=== PATIENT | male | born 1950 | race Caucasian/White ===

== ENCOUNTER 2018-11-23 18:45 | Emergency (ER) | payer BC, OTHER ==
[~2018-11-23] VITALS: Ht 180.3 cm; Wt 106.2 kg
[2018-11-23] MEDS ORDERED: NAPROSYN500 MG PO (20:05)
[2018-11-23 20:50] VITALS: BP 158/92
== END 2018-11-23 20:50 | disposition home or self-care (01) ==
LOC: ER 18:45
DX: S83.92XA Sprain of unspecified site of left knee, initial encounter (principal); W00.0XXA Fall on same level due to ice and snow, initial encounter; Y93.89 Activity, other specified; Y92.89 Other specified places as the place of occurrence of the external cause; Y99.8 Other external cause status